=== PATIENT | male | born 1940 | race Caucasian/White ===

== ENCOUNTER 2020-06-14 12:18 | Outpatient (CLI) | payer MEDICARE, SELFPAY ==
[2020-06-14 12:35] LABS: Add Urine Microscopic? NO; Appearance Urine Clear (Clear); Bilirubin Urine Negative (Negative); Blood Urine Negative (Negative); Color Urine Yellow (Yellow); Glucose Urine UA Negative (Negative); Ketones Urine Negative (Negative); Leukocyte Esterase Ur Negative LEU/UL (Negative); Nitrate Urine Negative (Negative); Protein Urine Negative (Negative); Urobilinogen Urine 0.2 mg/dL (0.2-1.0)
[2020-06-14 12:40] LABS: Basophils Absolute Auto 0.04 K/mm3 (0.00-0.10); Basophils Percent Auto 0.8 % (0.0-1.0); Eosinophils Absolute Auto 0.15 K/mm3 (0.02-0.50); Hematocrit 45.8 % (37.0-46.0); Hemoglobin 15.6 g/dL (12.4-15.3); Immature Granulocyte Absolute 0.01 K/mm3 (0.00-0.00); Immature Granulocyte Percent A 0.2 % (0.0-0.0); Lymphocytes Absolute Auto 1.39 K/mm3 (1.10-4.50); Lymphocytes Percent Auto 27.7 % (18.0-42.0); Mean Corpuscular HGB Conc 34.1 g/dL (32.0-36.0); Mean Corpuscular Hemoglobin 33.1 pg (27.0-31.0); Mean Corpuscular Volume 97.2 fL (78.0-102.0); Mean Platelet Volume 8.8 fl (8.7-11.0); Monocytes Absolute Auto 0.59 K/mm3 (0.10-0.90); Monocytes Percent Auto 11.8 % (2.0-11.0); Neutrophils Absolute Auto 2.8 K/mm3 (1.7-7.2); Neutrophils Percent Auto 56.5 % (50.0-70.0); Platelet Count Result 233 K/mm3 (150-420); Red Blood Count 4.71 M/mm3 (4.70-6.10); Red Cell Distribution Width 12.8 % (11.6-14.4)
[2020-06-14 13:17] LABS: Alanine Aminotransferase 21 U/L (16-63); Albumin Level 3.8 g/dL (3.4-5.0); Alkaline Phosphatase 64 U/L (46-116); Anion Gap 13.4 mmol/L (7-16); Aspartate Amino Transferase 21 U/L (15-37); Bilirubin,Total 0.9 mg/dL (0.00-1.00); Blood Urea Nitrogen 14 mg/dL (7-18); Calcium 8.7 mg/dL (8.5-10.1); Carbon Dioxide 26 mmol/L (21-32); Chloride 106 mmol/L (98-108); Cholesterol 182 mg/dL (0-200); Estimated Glomerular Filt Rate 55; Glucose 94 mg/dL (70-99); HDL Direct 33 mg/dL (40-60); LDL Cholesterol Calculated 129 mg/dL (<130); Osmolality Calculated 292 mOsm/kg (285-295); Potassium 4.4 mmol/L (3.5-5.1); Sodium 141 mmol/L (136-145); Total Protein 7.2 g/dL (6.4-8.2); Triglycerides 98 mg/dL (0-150)
[2020-06-14 13:18] LABS: Thyroid Stimulating Hormone Reflex 2.76 u/IU/mL (0.36-3.74)
== END 2020-06-14 12:19 | disposition home or self-care (01) ==
LOC: CHSLAB 12:23
PROVIDERS: PCP Family Medicine; Visit Provider Family Medicine
DX: R42 Dizziness and giddiness (principal); I10 Essential (primary) hypertension; N40.0 Benign prostatic hyperplasia without lower urinary tract symptoms
CPT/HCPCS: 36415; 80053; 80061; 81003; 84153; 84443; 85025

== ENCOUNTER 2020-09-06 12:08 | Outpatient (CLI) | payer MEDICARE, SELFPAY ==
[2020-09-07 14:11] LABS: SARS-CoV-2 RNA PCR Negative
== END 2020-09-06 12:09 | disposition home or self-care (01) ==
LOC: CHSLAB 12:12
PROVIDERS: PCP Family Medicine; Visit Provider Family Medicine
DX: Z20.828 Contact with and (suspected) exposure to other viral communicable diseases (principal)
CPT/HCPCS: 87635; C9803; U0003

== ENCOUNTER 2020-09-24 10:10 | Outpatient (CLI) | payer MEDICARE, SELFPAY ==
[2020-09-25 20:51] LABS: SARS-CoV-2 RNA PCR Positive
== END 2020-09-24 10:11 | disposition home or self-care (01) ==
PROVIDERS: PCP Nurse Practitioner Family; Visit Provider Nurse Practitioner Family
DX: U07.1 COVID-19 (principal)
CPT/HCPCS: 87635; C9803; U0003

== ENCOUNTER 2021-07-15 11:24 | Outpatient (CLI) | payer MEDICARE, SELFPAY ==
[2021-07-15 11:36] LABS: Basophils Absolute Auto 0.03 K/mm3 (0.00-0.10); Basophils Percent Auto 0.6 % (0.0-1.0); Eosinophils Absolute Auto 0.12 K/mm3 (0.02-0.50); Eosinophils Percent Auto 2.3 % (1.0-6.0); Hematocrit 45.7 % (37.0-46.0); Hemoglobin 15.3 g/dL (12.4-15.3); Immature Granulocyte Absolute 0.01 K/mm3 (0.00-0.00); Immature Granulocyte Percent A 0.2 % (0.0-0.0); Lymphocytes Absolute Auto 1.29 K/mm3 (1.10-4.50); Lymphocytes Percent Auto 24.9 % (18.0-42.0); Mean Corpuscular HGB Conc 33.5 g/dL (32.0-36.0); Mean Corpuscular Hemoglobin 32.2 pg (27.0-31.0); Mean Corpuscular Volume 96.2 fL (78.0-102.0); Monocytes Absolute Auto 0.54 K/mm3 (0.10-0.90); Monocytes Percent Auto 10.4 % (2.0-11.0); Neutrophils Absolute Auto 3.2 K/mm3 (1.7-7.2); Neutrophils Percent Auto 61.6 % (50.0-70.0); Platelet Count Result 217 K/mm3 (150-420); Red Blood Count 4.75 M/mm3 (4.70-6.10); Red Cell Distribution Width 13.6 % (11.6-14.4); White Blood Count 5.2 K/mm3 (4.8-10.8)
[2021-07-15 12:40] LABS: Alanine Aminotransferase 25 U/L (16-63); Albumin Level 3.7 g/dL (3.4-5.0); Alkaline Phosphatase 74 U/L (46-116); Anion Gap 10 mmol/L (8-16); Aspartate Amino Transferase 17 U/L (15-37); Bilirubin,Total 0.6 mg/dL (0.00-1.00); Blood Urea Nitrogen 11 mg/dL (7-18); Calcium 8.4 mg/dL (8.5-10.1); Carbon Dioxide 26 mmol/L (21-32); Chloride 105 mmol/L (98-108); Cholesterol 156 mg/dL (0-200); Estimated Glomerular Filt Rate > 60; Glucose 98 mg/dL (70-99); HDL Direct 35 mg/dL (40-60); LDL Cholesterol Calculated 92 mg/dL (<130); Osmolality Calculated 291 mOsm/kg (285-295); Potassium 4.4 mmol/L (3.5-5.1); Sodium 141 mmol/L (136-145); Total Protein 7.1 g/dL (6.4-8.2); Triglycerides 146 mg/dL (0-150)
[2021-07-18 13:36] LABS: Testosterone Free 56.9 pg/mL (30.0-135.0); Testosterone Total 474 ng/dL (250-1100)
== END 2021-07-15 11:25 | disposition home or self-care (01) ==
LOC: CHSLAB 11:27
PROVIDERS: PCP Family Medicine; Visit Provider Nurse Practitioner Family
DX: N52.1 Erectile dysfunction due to diseases classified elsewhere (principal); I10 Essential (primary) hypertension
CPT/HCPCS: 36415; 80053; 80061; 84402; 84403; 85025

== ENCOUNTER 2021-11-14 14:28 | Outpatient (CLI) | payer MEDICARE, SELFPAY ==
[2021-11-14 15:38] LABS: SARS-CoV-2 RNA PCR Negative (Negative)
== END 2021-11-14 14:29 | disposition home or self-care (01) ==
LOC: CHSLAB 14:30
PROVIDERS: PCP Family Medicine; Visit Provider Family Medicine
DX: Z20.822 Contact with and (suspected) exposure to COVID-19 (principal)
CPT/HCPCS: C9803; U0003; U0005

== ENCOUNTER 2022-01-10 11:20 | Outpatient (CLI) | payer MEDICARE, SELFPAY ==
[2022-01-10 12:10] LABS: Influenza A QL RT-PCR Negative (Negative); Influenza B QL RT-PCR Negative (Negative); SARS-CoV-2 RNA PCR Negative (Negative)
== END 2022-01-10 11:21 | disposition home or self-care (01) ==
LOC: CHSLAB 11:22
PROVIDERS: PCP Nurse Practitioner Family; Visit Provider Nurse Practitioner Family
DX: R50.9 Fever, unspecified (principal); Z20.822 Contact with and (suspected) exposure to COVID-19
CPT/HCPCS: 87502; C9803; U0003; U0005

== ENCOUNTER 2022-01-13 10:47 | Outpatient (CLI) | payer MEDICARE, SELFPAY ==
[2022-01-13 12:13] LABS: SARS-CoV-2 RNA PCR Negative (Negative)
== END 2022-01-13 10:48 | disposition home or self-care (01) ==
LOC: CHSLAB 10:48
PROVIDERS: PCP Nurse Practitioner Family; Visit Provider Nurse Practitioner Family
DX: R50.9 Fever, unspecified (principal); Z20.822 Contact with and (suspected) exposure to COVID-19
CPT/HCPCS: C9803; U0003; U0005

== ENCOUNTER 2022-02-13 11:08 | Outpatient (CLI) | payer MEDICARE, SELFPAY ==
--- NOTE | ~2022-02-13 | XR_ITS ---
EXAMINATION: XR chest 2V 02/13/2022 11:25 INDICATION: Chronic cough for 6 weeks. Congestion. PROCEDURE: 2 view chest COMPARISON: 06/19/2008 FINDINGS: The lungs are clear. The cardiomediastinal silhouette is within normal limits. There are no pleural effusions. There is no pneumothorax suspected. IMPRESSION: 1: NO ACUTE CARDIOPULMONARY DISEASE. Reviewed, dictated and finalized at location A.
== END 2022-02-13 11:09 | disposition home or self-care (01) ==
LOC: CHSIMG 11:10
PROVIDERS: PCP Nurse Practitioner Family; Visit Provider Nurse Practitioner Family
DX: R05.3 Chronic cough (principal)
CPT/HCPCS: 71046

== ENCOUNTER 2022-03-03 11:44 | Outpatient (CLI) | payer MEDICARE, SELFPAY ==
--- NOTE | 2022-03-03 11:49 | ECG_ITS ---
Measurements Intervals [place] Rate: 65 P: 69 NH: 182 QRS: -28 QRSD: 98 T: 16 QT: 417 QTc: 436 Interpretive Statements SINUS RHYTHM BORDERLINE LEFT AXIS DEVIATION [QRS AXIS < -20] INCOMPLETE RIGHT BUNDLE BRANCH BLOCK [90+ ms QRS DURATION, TERMINAL R IN V1/V2, 40+ ms S IN I/aVL/V4/V5/V6] NO PREVIOUS ECG AVAILABLE FOR COMPARISON Electronically Signed On 03-03-2022 15:50:55 CDT by Chandler Cartagena M.D.
[2022-03-03 12:04] LABS: Basophils Absolute Auto 0.06 K/mm3 (0.00-0.10); Eosinophils Absolute Auto 0.21 K/mm3 (0.02-0.50); Eosinophils Percent Auto 3.5 % (1.0-6.0); Hematocrit 43.2 % (37.0-46.0); Hemoglobin 14.1 g/dL (12.4-15.3); Immature Granulocyte Absolute 0.01 K/mm3 (0.00-0.00); Immature Granulocyte Percent A 0.2 % (0.0-0.0); Lymphocytes Absolute Auto 1.37 K/mm3 (1.10-4.50); Lymphocytes Percent Auto 23.1 % (18.0-42.0); Mean Corpuscular HGB Conc 32.6 g/dL (32.0-36.0); Mean Corpuscular Hemoglobin 31.8 pg (27.0-31.0); Mean Corpuscular Volume 97.3 fL (78.0-102.0); Mean Platelet Volume 8.7 fl (8.7-11.0); Monocytes Absolute Auto 0.54 K/mm3 (0.10-0.90); Monocytes Percent Auto 9.1 % (2.0-11.0); Neutrophils Absolute Auto 3.8 K/mm3 (1.7-7.2); Neutrophils Percent Auto 63.1 % (50.0-70.0); Platelet Count Result 293 K/mm3 (150-420); Red Blood Count 4.44 M/mm3 (4.70-6.10); Red Cell Distribution Width 13.8 % (11.6-14.4); White Blood Count 5.9 K/mm3 (4.8-10.8)
[2022-03-03 12:13] LABS: Add Urine Microscopic? YES; Appearance Urine Clear (Clear); Bilirubin Urine Negative (Negative); Blood Urine Negative (Negative); Color Urine Light Yellow (Yellow); Glucose Urine UA Negative (Negative); Ketones Urine Negative (Negative); Leukocyte Esterase Ur Trace LEU/UL (Negative); Nitrate Urine Negative (Negative); Protein Urine Negative (Negative); Urobilinogen Urine 0.2 mg/dL (0.2-1.0); pH Urine 7.5 (5.0-8.0)
[2022-03-03 12:16] LABS: Bacteria Urine None seen /hpf; RBC Urine None seen /hpf (0-2); Squamous Epithelial Cell Urine Rare /hpf (Few); WBC Urine None seen /hpf (0-3)
[2022-03-03 13:05] LABS: Alanine Aminotransferase 15 U/L (16-63); Albumin Level 3.1 g/dL (3.4-5.0); Alkaline Phosphatase 64 U/L (46-116); Anion Gap 8 mmol/L (8-16); Aspartate Amino Transferase 13 U/L (15-37); Bilirubin,Total 0.5 mg/dL (0.00-1.00); Blood Urea Nitrogen 12 mg/dL (7-18); Calcium 8.6 mg/dL (8.5-10.1); Carbon Dioxide 27 mmol/L (21-32); Chloride 104 mmol/L (98-108); Estimated Glomerular Filt Rate > 60; Free T4 Free Thyroxine 0.77 ng/dL (0.76-1.46); Glucose 109 mg/dL (70-99); Magnesium 1.9 mg/dL (1.8-2.4); Osmolality Calculated 288 mOsm/kg (285-295); Potassium 4.4 mmol/L (3.5-5.1); Sodium 139 mmol/L (136-145); Thyroid Stimulating Hormone 3.07 uIU/mL (0.36-3.74); Total Protein 6.9 g/dL (6.4-8.2); Vitamin B12 525 pg/mL (193-986)
[2022-03-05 15:47] LABS: Vitamin D 25 Hydroxy 50 ng/mL (30-100)
== END 2022-03-03 11:45 | disposition home or self-care (01) ==
LOC: CHSLAB 11:49
PROVIDERS: PCP Nurse Practitioner Family; Visit Provider Nurse Practitioner Family
DX: R53.83 Other fatigue (principal); I49.9 Cardiac arrhythmia, unspecified; Z79.899 Other long term (current) drug therapy
CPT/HCPCS: 36415; 80053; 81001; 82306; 82607; 83735; 84439; 84443; 85025; 93005

== ENCOUNTER 2023-06-29 13:46 | Outpatient (CLI) | payer MEDICARE, SELFPAY ==
--- NOTE | ~2023-06-29 | PE_ITS ---
EXAMINATION: PET_PETPSMAST_PT DATE: 06/29/2023 15:56 INDICATION: Prostate cancer. TECHNIQUE: 8.477 mCi of piflufolastat F-18 was administered intravenously. Low dose computed tomograp hy (CT) images were acquired from the base of the brain to the proximal thighs for attenuation correc tion and anatomic localization. Automated exposure control was employed. Dose-length product (DLP) wa s 482 mGy-cm. Positron emission tomography (PET) images were acquired in the same distribution. COMPARISON: None FINDINGS: Head/neck: There are no pathologically enlarged lymph nodes. Chest: There is a 5 mm nodule in right upper lobe, likely benign. The lungs demonstrate mild atelecta sis. A calcified right lung nodule and calcified right hilar and mediastinal lymph nodes are consiste nt with old granulomatous disease. No pleural effusion. Cardiomegaly is noted. There are coronary art seven calcifications. No pericardial effusion. There is a small sliding hiatal hernia. Abdomen/pelvis/proximal thighs: There is a 13 mm cyst in the liver. Calcifications in the liver and s pleen are consistent with old granulomatous disease. There are changes of cholecystectomy. The pancre as, adrenal glands, and kidneys are normal. Aortic atherosclerosis is noted. There is a right inguina l hernia containing fat. The prostate is severely enlarged. There is increased activity in the periph eral zone bilaterally with maximum SUV of 21.8. There is diverticulosis of the colon without evidence of diverticulitis. There are no dilated loops of bowel. There is no ascites. There is increased acti vity in bilateral internal and external iliac lymph nodes and a left common iliac lymph node. For exa mple, a 17 x 10 mm left external iliac node demonstrates maximum SUV of 57.7. There is no osseous mal ignancy. IMPRESSION: 1. Severely enlarged prostate with increased activity in the peripheral zone bilaterally, consistent with primary malignancy. 2. Increased activity in pelvic lymph nodes, consistent with metastatic disease. Reviewed, dictated and finalized at location A. IMPRESSION: 1. Severely enlarged prostate with increased activity in the peripheral zone bi laterally, consistent with primary malignancy. 2. Increased activity in pelvic lymph nodes, consistent with metastatic diseas e.
== END 2023-06-29 13:47 | disposition home or self-care (01) ==
LOC: ANHIMG 13:52
PROVIDERS: PCP Family Medicine; Visit Provider Urology
DX: C61 Malignant neoplasm of prostate (principal); R59.0 Localized enlarged lymph nodes
CPT/HCPCS: 78815; A9595

== ENCOUNTER 2023-07-31 11:37 | Outpatient (CLI) | payer MEDICARE, SELFPAY ==
[2023-07-31 13:06] LABS: Prostate Specific Antigen 9.3 ng/mL (< OR = 4.0)
== END 2023-07-31 11:38 | disposition home or self-care (01) ==
LOC: CHSLAB 11:40
PROVIDERS: PCP Family Medicine; Visit Provider Radiology Radiation Oncology
DX: C61 Malignant neoplasm of prostate (principal)
CPT/HCPCS: 36415; 84153

== ENCOUNTER 2023-09-11 10:28 | Outpatient (CLI) | payer MEDICARE, SELFPAY ==
--- NOTE | ~2023-09-11 | MR_ITS ---
EXAMINATION: MR pelvis wo/w con INDICATION: Malignant neoplasm of the prostate TECHNIQUE: 3D Axial T2 Cube, Axial 2D FIESTA, Coronal SSFSE ARC, Axial and Coronal 2D FIESTA FatSat, Axial T2 FS, Axial SSFSE BH ARC, Axial 3D DualEcho BH, Axial SSFSE-IR Connor, Axial DWI b=600, pre and d ynamic postcontrast Axial LAVA ARC, WATER:POST Cor LAVA-FLEX COMPARISON: PET/CT dated 06/29/2023 CONTRAST: Multihance, 14 cc FINDINGS: The prostate is enlarged and demonstrates heterogeneous T1 and T2 signal intensity. There a re punctate foci of T1 signal hyperintensity in the prostate, possibly related to biopsy. There appea rs to be a subtle fat plane between the rectum and prostate. The prostate demonstrates heterogeneous enhancement after contrast administration. There is probable proteinaceous material in the left semin al vesicles. The multiple pelvic lymph nodes demonstrating increased activity on recent PET/CT are no t pathologically enlarged but remain suspicious based on the PET findings. IMPRESSION: 1. Enlarged, heterogeneous prostate with focal changes likely related to biopsy. 2. Multiple pelvic lymph nodes with increased activity on recent PET/CT remain subcentimeter in size but suspicious. Reviewed, dictated and finalized at location F. IMPRESSION: 1. Enlarged, heterogeneous prostate with focal changes likely related to biopsy . 2. Multiple pelvic lymph nodes with increased activity on recent PET/CT remain subcentimeter in size but suspicious.
== END 2023-09-11 10:29 | disposition home or self-care (01) ==
PROVIDERS: PCP Family Medicine; Visit Provider Radiology Radiation Oncology
DX: C61 Malignant neoplasm of prostate (principal)
CPT/HCPCS: 72197; A9577

== ENCOUNTER 2024-05-31 17:56 | Outpatient (CLI) | payer MEDICARE, SELFPAY ==
[2024-05-31 19:33] LABS: Prostate Specific Antigen < 0.1 ng/mL (< OR = 4.0)
[2024-06-05 00:24] LABS: Testosterone Total 3 ng/dL (250-1100)
== END 2024-05-31 17:57 | disposition home or self-care (01) ==
PROVIDERS: PCP Family Medicine
DX: C61 Malignant neoplasm of prostate (principal)
CPT/HCPCS: 36415; 84153; 84403